=== PATIENT | female | born 1960 | race Caucasian/White ===

== ENCOUNTER → 2016-11-26 | Outpatient (CLI) | payer BC ==
[~2016-11-26] MED LIST: ALDACTONE25 MG PO; ALIGN4 MG PO; AMITRIPTYLINE H25 MG PO; AMRIX PO; COMBIVENT RESPIM4 GM INH; CYMBALTA60 MG PO; DIOVAN320 MG PO; GLUCOPHAGE500 MG PO; HYDROXYZINE HCL25 MG PO; JANUVIA100 MG PO; LEVOTHYROXINE150 MCG PO; LOPRESSOR100 MG PO; NAPROSYN EC 50500 MG PO; NEURONTIN 400400 MG PO; NORCO 7.5-3251 EACH PO; NORVASC 5 MG TAB5 MG PO; PRAVACHOL40 MG PO; PROMETHAZINE12.5 M1 PO; PROTONIX 40 MG40 M1 PO; SYMBICORT 16010.2 GM INH; THEOPHYLLINE400 MG PO; TRIAMTERENE-HC1 EAC1 PO; TRICOR 145 MG145 MG PO; ZYLOPRIM 100 M100 MG PO
== END ==
LOC: HEART 5 13:43
DX: J44.9 Chronic obstructive pulmonary disease, unspecified (principal)
CPT/HCPCS: 71020-FX

== ENCOUNTER → 2016-12-10 | Outpatient (CLI) | payer BC | LOC: KOH-I 12:00 | DX: R91.1 Solitary pulmonary nodule (principal) | CPT/HCPCS: 71250 ==

== ENCOUNTER → 2021-01-31 | Outpatient (CLI) | payer OTHER ==
[~2021-01-31] MED LIST changes: +COZAAR100 MG PO; +ECOTRIN81 MG PO; +ELIQUIS2.5 MG PO; +IMITREX100 MG PO; +NEURONTIN400 MG PO; +STEGLATRO5 MG PO; +TOPROL XL200 MG PO; +TRIAMTERENE-HC1 EACH PO; +VENTOLIN HFA 66.7 GM INH
== END ==
LOC: HEART CORB 09:30
DX: R07.2 Precordial pain (principal); R55 Syncope and collapse; I10 Essential (primary) hypertension; R93.1 Abnormal findings on diagnostic imaging of heart and coronary circulation; I34.0 Nonrheumatic mitral (valve) insufficiency
CPT/HCPCS: 78452; 93306; A9502; J2785

== ENCOUNTER → 2021-03-06 | Outpatient (CLI) | payer OTHER | LOC: NM 08:46 | DX: R10.11 Right upper quadrant pain (principal); R10.84 Generalized abdominal pain; R19.7 Diarrhea, unspecified; K21.9 Gastro-esophageal reflux disease without esophagitis; R11.0 Nausea | CPT/HCPCS: 78227; A9537; J2805 ==

== ENCOUNTER → 2021-03-21 | Outpatient (CLI) | payer OTHER | LOC: KOH-I 10:48 | DX: Z87.891 Personal history of nicotine dependence (principal); R91.1 Solitary pulmonary nodule | CPT/HCPCS: 71271 ==